=== PATIENT | male | born 1995 | race Hispanic/Latino ===

== ENCOUNTER 2021-03-04 18:02 | Emergency (ER) | payer SELFPAY ==
[2021-03-04] MEDS ORDERED: CEPHALEXIN 500 MG CAPSULE ONE (18:27)
[2021-03-04] MEDS ORDERED: TETANUS/DIPHTHERIA TOXOID [ADULT] 0.5 ML VIAL IM ONE (18:28)
[2021-03-04] MEDS ORDERED: ACETAMINOPHEN EXTRA STRENGTH 500 MG TABLET ONE (18:28)
[2021-03-04] MEDS ORDERED: LIDOCAINE HCL 1% 20 ML VIAL ONE (18:28)
== END 2021-03-04 19:20 | disposition home or self-care (01) ==
LOC: EDH 18:02
DX: S61.214A Laceration without foreign body of right ring finger without damage to nail, initial encounter (principal); S61.212A Laceration without foreign body of right middle finger without damage to nail, initial encounter; Z72.0 Tobacco use; W45.8XXA Other foreign body or object entering through skin, initial encounter; Y93.89 Activity, other specified; Y92.89 Other specified places as the place of occurrence of the external cause; Y99.8 Other external cause status
CPT/HCPCS: 12002; 90471; 90714

== ENCOUNTER 2024-11-07 10:22 | Emergency (ER) | payer SELFPAY ==
[~2024-11-07] VITALS: Ht 162.6 cm; Wt 81.6 kg
[2024-11-07 10:51] LABS: RAPID GROUP A STREP negative (NEGATIVE)
--- NOTE | 2024-11-07 10:53 | ERN ---
ED Note History of Present Illness Stated Complaint: FEVER Chief Complaint: Fever Time Seen by MD: 10:24 Time Seen by Midlevel: 10:28 Dictation: 29-year-old male coming in with complaints of cough and congestion for four days, states today he began with fever and throat pain. States he works at a [employer] shop with so he is in contact with a lot of people all day. Denies any medical or surgical history. Allergies: Coded Allergies: No Known Allergies (Unverified Allergy, Unknown, 11/07/24) Past Medical History Past Medical History: No Pertinent History Surgical History: None Review of System Dictation Constitutional: Complaining of fever onset today Eyes: Negative for injury, pain,redness, and discharge ENT: Complaining of throat pain Cardiovascular: Negative for chest pain, palpitations, and edema Respiratory: Negative for shortness of breath, cough, and wheezing, Abdomen/GI: Negative for abdominal pain, nausea, vomiting, diarrhea, and constipation Back: Negative for injury and pain : Negative for injury, bleeding and discharge MS/Extremity: Negative for injury and deformity Skin: Negative for rash, and discoloration Neuro: Negative for headache, weakness, numbness, tingling, and seizure Psych: Negative for suicide ideation, homicidal ideation, and hallucinations Review of Systems: was completed Initial Vital Sign VS Vital Signs Date Time Temp Pulse Resp B/P (MAP) Pulse Ox O2 Delivery O2 Flow Rate FiO2 11/07/24 10:25 97.2 92 20 132/97 99 Room Air 11/07/24 11:43 0 21 Physical Exam Dictation General: awake, alert, NAD Head/Face: Normocephalic, atraumatic Eyes: PERRL, EOMI, vision at baseline ENT: oral cavity clear, TMs clear, there is erythema noted to the pharynx Neck: Trachea midline, supple, no nuchal rigidity Cardiovascular: RRR, normal S1/S2, No MRGs, no JVD Respiratory: CTAB, no respiratory distress, No rales or wheezes Abdomen: Soft, non-tender, non-distended, normal bowel sounds, no guarding or rebound. Skin: Warm, dry, normal turgor, no rash MS/Extremity: Pulses equal, no cyanosis, neurovascular intact, FROM Neuro: COAx4, GCS 15, strength 5/5, CN 2-12 intact, normal cerebellar exam, normal gait, Psych: Normal behavior, mood, and affect normal Results (Laboratory/Radiology) Laboratory/Radiology Laboratory Tests Test 11/07/24 10:27 Influenza Type A Antigen NEGATIVE FOR TYPE A Influenza Type B Antigen NEGATIVE FOR TYPE B SARS-CoV-2, RNA, NAAT NEGATIVE SARS CoV-2 Group A Streptococcus Rapid negative (NEGATIVE) Labs Reviewed?: Yes ED Course ED Course Orders Procedure Category Date Status Time Covid Rna Naat LAB 11/07/24 Complete 10:24 Influenza Type A & B, LAB 11/07/24 Complete Rapid 10:24 Rapid (Group A Strep) LAB 11/07/24 Complete 10:24 Vital Signs Date Time Temp Pulse Resp B/P (MAP) Pulse Ox O2 Delivery O2 Flow Rate FiO2 11/07/24 11:43 97.2 92 20 132/97 99 Room Air* 0 21 11/07/24 10:25 97.2 92 20 132/97 99 Room Air Medical Decision Making MDM MDM: 29-year-old male coming in with complaints of cough and congestion for four days, states today he began with fever and throat pain. States he works at a [employer] shop with so he is in contact with a lot of people all day. Denies any medical or surgical history. Swabs around negative. Discussed findings with the patient. Discussed patient that viral syndrome colostomy can last 7-10 days you can take nwyd-yop-jylgttz medication to control symptoms like Tylenol, Motrin, and Mucinex, Bromfed. Patient verbalized understanding, answered all questions. Differential diagnosis: Viral syndrome, strep throat, COVID, flu, viral pharyngitis Rationale: Tests considered and ordered secondary to shared decision making include: Previous outside records reviewed: Old ER visits. Risk of complication and/or morbidity or mortality of patient management: None Medications-Per medication reconciliation Need for hospitalization: Patient does not meet criteria for hospitalization. Need for emergency major/minor surgery: No There are no social concerns with this patient. Prescription drug management Prescriptions will include symptomatic care Patient's prior external medical records from other ER visits were reviewed by me as indicated. Prior testing and results from previous visits were reviewed. Prior tests were taken into account with medical decision making and resource utilization, independent historian/historians were used to obtain complete medical history. I independently interpreted the test that were performed, results were reviewed by me and considered findings on radiology if ordered. Medical management and examination interpretation discussions were had by me with other qualified healthcare professionals as indicated for the patient's care. DX & DISP Disposition: Discharge Departure Impression: Primary Impression: Viral syndrome Additional Impression: Viral pharyngitis Condition: Stable Additional Instructions: Your swabs are negative. You can take nhwl-ikx-yoncxts medication like Tylenol or Motrin to control the fever. You can take Bromfed her Tessalon Perles mrzq-fhz-[id number] to control your cough. Mucinex for congestion. Please return to the ER if you have any worsening symptoms and follow up with your primary doctor in 1-2 days. Referrals: SUSHIL WARD (PCP) Time of Disposition: 11:48 I have reviewed the case, and I agree with, Diagnosis and Plan MASON NEAL NP Nov 07, 2024 10:53
[2024-11-07 10:57] LABS: SARS-CoV-2, RNA, NAAT NEGATIVE SARS CoV-2 (NEGATIVE)
[2024-11-07 11:19] LABS: INFLUENZA TYPE A NEGATIVE FOR TYPE A (NEGATIVE); INFLUENZA TYPE B NEGATIVE FOR TYPE B (NEGATIVE)
[2024-11-07 11:43] VITALS: BP 132/97; PULSE 92; RESP 20; TEMP 97.2; O2SAT 99
== END 2024-11-07 12:09 | disposition home or self-care (01) ==
LOC: EDH 10:22
DX: J02.8 Acute pharyngitis due to other specified organisms (principal); B97.89 Other viral agents as the cause of diseases classified elsewhere; Z20.822 Contact with and (suspected) exposure to COVID-19
CPT/HCPCS: 87635; 87804; 87880; 99283

== ENCOUNTER 2024-12-10 14:13 | Emergency (ER) | payer SELFPAY ==
[~2024-12-10] VITALS: Ht 162.6 cm; Wt 81.6 kg
[2024-12-10 15:08] LABS: RAPID GROUP A STREP negative (NEGATIVE)
[2024-12-10 15:18] LABS: COVID19 (SARS ANTIGEN RAPID) PRESUMPTIVE NEGATIVE (NEGATIVE); INFLUENZA TYPE A Negative For Type A (NEGATIVE); INFLUENZA TYPE B Negative For Type B (NEGATIVE)
--- NOTE | 2024-12-10 15:21 | HMCIMG ---
CHEST 1VW REASON: Fever, cough COMPARISON: None. FINDINGS: Single view of the chest was obtained. Lungs are clear. Heart size is normal. There is no pulmonary vascular congestion. Mediastinum and bony thorax appear unremarkable. IMPRESSION: 1. Normal single view chest x-ray.
[2024-12-10] MEDS ORDERED: OXYM30SP27 NS (15:25)
[2024-12-10] MEDS ORDERED: AZIT250T9 PO (15:25)
--- NOTE | 2024-12-10 15:25 | ERN ---
General Chief Complaint: Cough Stated Complaint: COUGHING, CONGENSTION IN CHEST Time Seen by MD: 14:22 Time Seen by Midlevel: 14:22 Source: patient History of Present Illness Initial Comments 29-year-old male who presents to the emergency department due to a cough onset last week. Patient reports nasal congestion, sore throat, fever but denies any abdominal pain, chest pain, difficulty breathing or further associated symptoms. Denies any significant past medical history. Allergies: Coded Allergies: No Known Allergies (Unverified Allergy, Unknown, 11/07/24) Home Meds Active Scripts Oxymetazoline HCl (Afrin) 0.05 % [place], 1 SPRAY NS BID for 3 Days, #15 ML 0 Refills Prov:RASTA JACOBSEN 12/10/24 Azithromycin (Azithromycin) 250 Mg Tablet, 1 TAB PO AD for 5 Days, #6 TAB 0 Refills 2 the first day followed by 1 for days 2-5 Prov:RASTA JACOBSEN 12/10/24 Past Medical History Past Medical History: No Pertinent History Past Surgical History: None ROS Dictation Constitutional: Positive for fever Negative for chills, and weight loss Eyes: Negative for injury, pain,redness, and discharge ENT: Positive for sore throat, nasal congestion Negative for injury,pain or swelling Cardiovascular: Negative for chest pain, palpitations, and edema Respiratory: Positive for cough Negative for shortness of breath, and wheezing, Abdomen/GI: Negative for abdominal pain, nausea, vomiting, diarrhea, and constipation Back: Negative for injury and pain : Negative for painful urination, bleeding or discharge MS/Extremity: Negative for injury and deformity Skin: Negative for rash, and discoloration Neuro: Negative for headache, weakness, numbness, tingling, and seizure Psych: Negative for suicide ideation, homicidal ideation, and hallucinations Physical Exam Physical Exam Dictation General: awake, alert, no acute distress Head/Face: Normocephalic, atraumatic Eyes: PERRL, EOMI, normal conjunctiva ENT: oral cavity clear, TMs clear, oral mucosa moist, mild erythematous pharynx Neck: Normal range of motion, supple Cardiovascular: RRR, normal S1/S2 Respiratory: CTAB, no respiratory distress, no rales or wheezes, rhonchi auscultated bilaterally Abdomen: Soft, non-tender, non-distended, no guarding or rebound. Skin: Warm, dry, normal turgor, no rash MS/Extremity: Pulses equal, no cyanosis, neurovascular intact, FROM Neuro: COAx4, GCS 15, no neurological deficits, normal gait Results Laboratory and Microbiology Lab and Micro Result Laboratory Tests Test 12/10/24 14:28 Influenza Type A Antigen Negative For Type A Influenza Type B Antigen Negative For Type B SARS-CoV-2 Antigen (Rapid) PRESUMPTIVE NEGATIVE Group A Streptococcus Rapid negative (NEGATIVE) Labs Reviewed?: Yes EKG/XRAY/US/CT/MRI X-RAY Comment REASON: Fever, cough ORDERING PHYSICIAN: RASTA JACOBSEN PROCEDURE: CXR1VW - CHEST 1VW CHEST 1VW REASON: Fever, cough COMPARISON: None. FINDINGS: Single view of the chest was obtained. Lungs are clear. Heart size is normal. There is no pulmonary vascular congestion. Mediastinum and bony thorax appear unremarkable. IMPRESSION: 1. Normal single view chest x-ray. DICTATED BY: EULA BROWN MD DATE: 12/10/24 0208 MDM MDM: Differential diagnosis: Viral illness, influenza, COVID, strep, pneumonia Rationale: 29-year-old male who presents to the emergency department due to a cough onset last week. Patient reports nasal congestion, sore throat, fever but denies any abdominal pain, chest pain, difficulty breathing or further associated symptoms. Denies any significant past medical history. Per physical examination patient is in no acute distress, nonlabored breathing, rhonchi auscultated bilaterally. Influenza, strep, COVID negative. Patient was educated on findings and diagnosis. Advised to follow up with PCP. Return to the emergency department if any worsening symptoms. Patient verbalized understanding. Patient stable for discharge. There are no social concerns with this patient. I independently interpreted the test that were performed, results were reviewed by me and considered findings on radiology if ordered. Medical management and examination interpretation discussions were had by me with other qualified healthcare professionals as indicated for the patient's care. ED Course Orders Procedure Category Date Status Time Chest 1vw RAD 12/10/24 Resulted 14:28 Covid19 (Sars Antigen LAB 12/10/24 Complete Rapid) 14:28 Influenza Type A & B, LAB 12/10/24 Complete Rapid 14:28 Rapid (Group A Strep) LAB 12/10/24 Complete 14:28 Vital Signs Date Time Temp Pulse Resp B/P (MAP) Pulse Ox O2 Delivery O2 Flow Rate FiO2 12/10/24 14:24 99.9 100 20 127/89 96 Room Air 0 DX & DISP Disposition: Discharge Departure Impression: Primary Impression: URI (upper respiratory infection) Condition: Stable Scripts Oxymetazoline HCl (Afrin) 0.05 % [place] 1 SPRAY NS BID for 3 Days, #15 ML 0 Refills Prov: RASTA JACOBSEN 12/10/24 Azithromycin (Azithromycin) 250 Mg Tablet 1 TAB PO AD for 5 Days, #6 TAB 0 Refills 2 the first day followed by 1 for days 2-5 Prov: RASTA JACOBSEN 12/10/24 Additional Instructions: Discharge home. Rest. Follow up with primary care DrRick in 24 hours. Return to the ER for any acute changes or worsening symptoms. If any medications were prescribed take as directed. Okay to continue home medications unless otherwise discussed during your visit in the emergency room today. Patient was also advised to follow-up with primary care physician in 1 to 2 days for continued monitoring. Referrals: SUSHIL WARD (PCP) I participated in the following activities of this patient's care: For this patient encounter, I reviewed the PA or COAL DUMPING EQUIPMENT OPERATOR documentation, treatment plan, and medical decision making. I did not have swuy-jq-qxji time with this patient. I will sign as the reviewing DrRick And agree with the treatment plan and disposition. RASTA JACOBSEN Dec 10, 2024 15:25
[2024-12-10 15:56] VITALS: BP 115/80; PULSE 94; RESP 18; TEMP 98.6; O2SAT 96
== END 2024-12-10 16:02 | disposition home or self-care (01) ==
LOC: EDH 14:13
DX: J06.9 Acute upper respiratory infection, unspecified (principal); Z20.822 Contact with and (suspected) exposure to COVID-19; Z79.899 Other long term (current) drug therapy
CPT/HCPCS: 71045; 87426; 87804; 87880; 99284

== ENCOUNTER 2024-12-30 16:39 | Emergency (ER) | payer SELFPAY ==
[~2024-12-30] VITALS: Ht 162.6 cm; Wt 77.1 kg
[~2024-12-30 16:39] MED LIST: AZIT250T9 PO; OXYM30SP27 NS
[2024-12-30 16:40] VITALS: BP 163/108; PULSE 117; RESP 18; TEMP 99.2
[2024-12-30 17:18] LABS: BASOPHILS # (AUTO) 0.07 K/uL (0.00-0.20); BASOPHILS % (AUTO) 0.7 % (0.0-5.0); EOSINOPHILS # (AUTO) 0.09 K/uL (0.00-0.70); EOSINOPHILS % (AUTO) 0.9 % (0.0-8.0); HEMATOCRIT 46.5 % (42-54); IMMATURE GRANULOCYTE ABSOLUTE 0.03 K/uL (0-1); LYMPHOCYTES % (AUTO) 20.1 % (21.0-51.0); MEAN CORPUSCULAR HEMOGLOBIN 32.2 pg (27.0-33.0); MEAN CORPUSCULAR HGB CONC 34.2 g/dL (32.0-36.0); MEAN CORPUSCULAR VOLUME 94.1 fL (79-99); MONOCYTES # (AUTO) 0.9 K/uL (0.1-1.0); MONOCYTES % (AUTO) 9.4 % (3.0-13.0); NEUTROPHILS # (AUTO) 6.8 K/uL (1.8-7.7); NEUTROPHILS % (AUTO) 68.6 % (40.0-77.0); PLATELET COUNT (AUTO) 452 K/uL (130-400); RED BLOOD CELL COUNT(AUTO) 4.94 MIL/uL (4.50-6.20); RED CELL DISTRIBUTION WIDTH 12.6 % (11.0-15.5); WHITE BLOOD COUNT (AUTO) 9.9 K/uL (4.8-10.8)
[2024-12-30 17:19] LABS: CREATININE 0.9 mg/dL (0.5-1.3); POTASSIUM 3.5 mmol/L (3.5-5.1)
[2024-12-30 17:47] LABS: B-TYPE NATRIURETIC PEPTIDE < 5 pg/mL (0-100)
--- NOTE | 2024-12-30 17:47 | HMCIMG ---
CHEST 1VW HISTORY: Chest pain COMPARISON: None FINDINGS: A frontal projection of the chest was obtained. No acute pulmonary infiltrates is seen. The heart is normal in size. Prominent interstitial markings are seen. No evidence of aortic calcification is seen. IMPRESSION: 1. No acute pulmonary infiltrate is seen.
--- NOTE | 2024-12-30 18:44 | EKG ---
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
--- NOTE | 2024-12-30 18:57 | ERN ---
ED Note History of Present Illness Stated Complaint: CHEST PAIN Chief Complaint: Chest Pain Time Seen by MD: 16:46 Dictation: 29-year-old male presents to the ED for evaluation of sudden chest pain. Patient reports he was taking Xanax up to 5 times a day for a year and just tetanus stopped taking them. Allergies: Coded Allergies: No Known Allergies (Unverified Allergy, Unknown, 11/07/24) Home Meds Active Scripts Oxymetazoline HCl (Afrin) 0.05 % [place], 1 SPRAY NS BID for 3 Days, #15 ML 0 Refills Prov:RASTA JACOBSEN 12/10/24 Azithromycin (Azithromycin) 250 Mg Tablet, 1 TAB PO AD for 5 Days, #6 TAB 0 Refills 2 the first day followed by 1 for days 2-5 Prov:RASTA JACOBSEN 12/10/24 Past Medical History Past Medical History: No Pertinent History Surgical History: None Review of System Dictation Constitutional: Negative for fever,chills, and weight loss Eyes: Negative for injury, pain,redness, and discharge ENT: Negative for injury,pain or swelling Cardiovascular: Positive for chest pain negative for palpitations, and edema Respiratory: Negative for shortness of breath, cough, and wheezing, Abdomen/GI: Negative for abdominal pain, nausea, vomiting, diarrhea, and constipation Back: Negative for injury and pain : Negative for injury, bleeding and discharge MS/Extremity: Negative for injury and deformity Skin: Negative for rash, and discoloration Neuro: Negative for headache, weakness, numbness, tingling, and seizure Psych: Negative for suicide ideation, homicidal ideation, and hallucinations Initial Vital Sign VS Vital Signs Date Time Temp Pulse Resp B/P (MAP) Pulse Ox O2 Delivery O2 Flow Rate FiO2 12/30/24 16:40 99.1 117 18 163/108 98 Room Air Physical Exam Dictation General: awake, alert, NAD Head/Face: Normocephalic, atraumatic Eyes: PERRL, EOMI, vision at baseline ENT: oral cavity clear, TMs clear, no signs of infection Neck: Trachea midline, supple, no nuchal rigidity Cardiovascular: RRR, normal S1/S2, No MRGs, no JVD Respiratory: CTAB, no respiratory distress, No rales or wheezes Abdomen: Soft, non-tender, non-distended, normal bowel sounds, no guarding or rebound. Skin: Warm, dry, normal turgor, no rash MS/Extremity: Pulses equal, no cyanosis, neurovascular intact, FROM Neuro: COAx4, GCS 15, strength 5/5, CN 2-12 intact, normal cerebellar exam, normal gait, Psych: Normal behavior, mood, and affect normal Results (Laboratory/Radiology) Laboratory/Radiology Laboratory Tests Test 12/30/24 16:58 12/30/24 17:18 White Blood Count 9.9 K/uL (4.8-10.8) Red Blood Count 4.94 MIL/uL (4.50-6.20) Hemoglobin 15.9 g/dL (14.0-18.0) Hematocrit 46.5 % (42-54) Mean Corpuscular Volume 94.1 fL (79-99) Mean Corpuscular Hemoglobin 32.2 pg (27.0-33.0) Mean Corpuscular Hemoglobin Concent 34.2 g/dL (32.0-36.0) Red Cell Distribution Width 12.6 % (11.0-15.5) Platelet Count 452 K/uL (130-400) H Mean Platelet Volume 9.0 fL (7.5-10.5) Immature Granulocyte % (Auto) 0.3 % (0-1) Neutrophils (%) (Auto) 68.6 % (40.0-77.0) Lymphocytes (%) (Auto) 20.1 % (21.0-51.0) L Monocytes (%) (Auto) 9.4 % (3.0-13.0) Eosinophils (%) (Auto) 0.9 % (0.0-8.0) Basophils (%) (Auto) 0.7 % (0.0-5.0) Neutrophils # (Auto) 6.8 K/uL (1.8-7.7) Lymphocytes # (Auto) 2.0 K/uL (1.0-4.8) Monocytes # (Auto) 0.9 K/uL (0.1-1.0) Eosinophils # (Auto) 0.09 K/uL (0.00-0.70) Basophils # (Auto) 0.07 K/uL (0.00-0.20) Absolute Immature Granulocyte (auto 0.03 K/uL (0-1) Nucleated Red Blood Cells 0.0 % (0.0-0.19) Sodium Level 134 mmol/L (136-145) L Potassium Level 3.5 mmol/L (3.5-5.1) Chloride Level 99 mmol/L (101-111) L Carbon Dioxide Level 30 mmol/L (21-32) Blood Urea Nitrogen 9 mg/dL (7-18) Creatinine 0.9 mg/dL (0.5-1.3) Glomerular Filtration Rate Calc 119 mL/min (>90) Random Glucose 116 mg/dL (70-105) H Total Calcium 9.1 mg/dL (8.5-10.1) Total Creatine Kinase 78 U/L (21-232) B-Type Natriuretic Peptide < 5 pg/mL (0-100) Troponin I < 0.05 ng/mL (0.00-0.05) Labs Reviewed?: Yes ED Course ED Course Orders Procedure Category Date Status Time Vital Signs Per CPOE 12/30/24 Transmitted Routine 16:45 B-Type Natriuretic LAB 12/30/24 Complete Peptide 16:45 Chest 1vw RAD 12/30/24 Resulted 16:45 12 Lead Ekg Tracing- EKG 12/30/24 Complete Technical 16:45 Oxygen By Nc/Pulse Ox CPOE 12/30/24 Transmitted 16:45 Maintain Iv CPOE 12/30/24 Transmitted 16:45 Iv Insertion CPOE 12/30/24 Transmitted 16:45 Cardiac Monitoring CPOE 12/30/24 Transmitted 16:45 Pulse Oximetry With CPOE 12/30/24 Transmitted Vs And Prn 16:45 Cbc With Differential LAB 12/30/24 Complete 16:45 Activity: Br W/Brp CPOE 12/30/24 Transmitted With Assist 16:45 Creatine Kinase, Total LAB 12/30/24 Complete 16:45 Urinalysis Profile LAB 12/30/24 Logged 16:45 Troponin Poc Order LAB 12/30/24 Complete Only 16:45 Bedside Troponin-I LAB.ER 12/30/24 In Process (Poc) 16:45 Basic Metabolic Panel LAB 12/30/24 Complete 16:45 Drug Screen Urine LAB 12/30/24 Logged 16:45 0.9%Nacl 1000ml (Ns PHA 12/30/24 Complete 1000ml) 23:30 Current Medications Medications (Trade) Dose Ordered Sig/Joby Route PRN Reason Start Time Stop Time Status Last Admin Dose Admin Sodium Chloride 1,000 ml @ 0 mls/hr ONCE ONCE IV 12/30/24 23:30 12/30/24 23:31 DC Vital Signs Date Time Temp Pulse Resp B/P (MAP) Pulse Ox O2 Delivery O2 Flow Rate FiO2 12/30/24 16:40 99.1 117 18 163/108 98 Room Air Medical Decision Making MDM MDM: Differential diagnosis: Chest pain Risk of complication and/or morbidity or mortality of patient management: None Medications-Per medication reconciliation Need for hospitalization: Patient does not meet criteria for hospitalization. Need for emergency major/minor surgery: No There are no social concerns with this patient. Prescription drug management Prescriptions will include symptomatic care I independently interpreted the test that were performed, results were reviewed by me and considered findings on radiology if ordered. 1899- patient care is being transferred to Dr. Koch DX & DISP Disposition: Inpatient Departure Impression: Primary Impression: Chest pain Condition: Stable Referrals: SUSHIL WARD (PCP) KLAUS JUSTICE MD Dec 30, 2024 18:57 ABEBA KOCH MD Dec 30, 2024 23:42
[2024-12-30] MEDS ORDERED: 0.9%NACL 1000ML 1,000 ML IV ONE (23:30)
--- NOTE | 2024-12-30 23:44 | NUR ---
PATIENT CALLED TO THE BACK AT THIS TIME TO BED, NO ANSWER./KRISTINA
--- NOTE | 2024-12-31 00:02 | NUR ---
ATTEMPTED TO CALL PATIENT ONCE AGAIN TO BED, NO ANSWER AT THIS TIME./KRISTINA
--- NOTE | 2024-12-31 00:16 | NUR ---
NO CALL NO ANSWER FOR THE 3RD ATTEMPT. ADMITTING MD MADE AWARE OF ELOPMENT./KRISTINA
== END 2024-12-31 00:18 | disposition left against medical advice (07) ==
LOC: EDH 16:39
DX: R07.89 Other chest pain (principal); Z79.899 Other long term (current) drug therapy
CPT/HCPCS: 36415; 71045; 80048; 82550; 83880; 84484; 85025; 93005; 99285